=== PATIENT | female | born 1950 | race African-American/Black ===

== ENCOUNTER 2018-11-25 11:05 | Day surgery (SDC) | payer OTHER, BC ==
[2018-11-19 08:50] VITALS: BMI 19.8
[2018-11-25] MEDS ORDERED: LIDOCAINE HCL/PF 2% SDV 5ML VIAL ONE (11:30)
[2018-11-25 12:29] VITALS: TEMP 97.6
[2018-11-25 13:31] VITALS: BP 152/68; PULSE 78
== END 2018-11-25 13:15 | disposition home or self-care (01) ==
LOC: FASU-ENDO 11:05
PROVIDERS: ATTEND Internal Medicine Gastroenterology
PROC: 0DJD8ZZ Inspection of Lower Intestinal Tract, Via Natural or Artificial Opening Endoscopic (ICD-10-PCS; principal; 2018-11-25 11:54)
DX: Z12.11 Encounter for screening for malignant neoplasm of colon (principal); K64.2 Third degree hemorrhoids